=== PATIENT | male | born 1955 | race Caucasian/White ===

== ENCOUNTER 2023-08-12 10:51 | Outpatient (REF) | payer OTHER, SELFPAY ==
[2023-08-12 11:10] LABS: MANUAL DIFF FLAG NO
[2023-08-12 12:27] LABS: Basophils Percent Auto 0.5 % (0-2); Eosinophils Absolute Auto 0.3 X10*3/uL (0.0-0.4); Eosinophils Percent Auto 3.6 % (0-4); Hematocrit 28.1 % (42.0-52.0); Imm Gran Abs Auto 0.07 X10*3/uL (0.00-0.03); Lymphocytes Absolute Auto 1.5 X10*3/uL (1.2-4.9); Lymphocytes Percent Auto 20.4 % (20-40); Mean Corpuscular HGB Conc 35.6 g/dl (31.0-36.0); Mean Corpuscular Volume 98.3 fL (80.0-98.0); Mean Platelet Volume 8.8 fL (9.4-12.4); Monocytes Absolute Auto 0.8 X10*3/uL (0.1-1.2); Monocytes Percent Auto 10.7 % (2-11); Neutrophils Absolute Auto 4.7 x10*3/uL (2.0-8.3); Neutrophils Percent Auto 63.8 % (45-73); Platelet Count 285 X10*3/uL (160-400); RET ABN SCTR 1; Red Blood Count 2.86 X10*6/uL (4.60-5.80); Red Cell Distribution Width 14.6 % (11.0-16.0); White Blood Count 7.3 X10*3/uL (4.8-10.8)
[2023-08-12 12:31] LABS: Bilirubin Total 2.2 mg/dL (0.0-1.0); Lactate Dehydrogenase 302 U/L (118-273)
[2023-08-12 12:34] LABS: Immature Retic Fraction 20.4 % (2.3-13.4); Retic HGB Equivalent 37.5 pg (30.0-35.0)
[2023-08-12 12:35] LABS: Reticulocyte Percent 5.8 % (0.5-1.8); Reticulocytes Absolute 0.167 X10*6/uL (0.026-0.095)
[2023-08-12 22:08] LABS: Haptoglobin <10 MG/DL ((30-200))
== END 2023-08-12 10:52 | disposition home or self-care (01) ==
LOC: HO.LABR 10:51
PROVIDERS: Visit Provider Internal Medicine Medical Oncology
DX: D59.12 Cold autoimmune hemolytic anemia (principal)
CPT/HCPCS: 36415; 82247; 83010; 83615; 85025; 85045

== ENCOUNTER 2023-09-07 12:08 | Outpatient (REF) | payer OTHER, SELFPAY ==
[2023-09-07 12:30] LABS: MANUAL DIFF FLAG NO
[2023-09-07 13:07] LABS: Basophils Percent Auto 0.5 % (0-2); Bilirubin Total 1.9 mg/dL (0.0-1.0); Eosinophils Absolute Auto 0.2 X10*3/uL (0.0-0.4); Eosinophils Percent Auto 2.9 % (0-4); Hematocrit 25.6 % (42.0-52.0); Imm Gran Abs Auto 0.04 X10*3/uL (0.00-0.03); Imm Gran Pct Auto 0.7 % (0.0-0.4); Immature Retic Fraction 21.5 % (2.3-13.4); Lactate Dehydrogenase 342 U/L (118-273); Lymphocytes Absolute Auto 1.8 X10*3/uL (1.2-4.9); Lymphocytes Percent Auto 29.5 % (20-40); Mean Corpuscular HGB Conc 35.2 g/dl (31.0-36.0); Mean Corpuscular Hemoglobin 35.4 pg (27.0-33.0); Mean Corpuscular Volume 100.8 fL (80.0-98.0); Mean Platelet Volume 8.9 fL (9.4-12.4); Monocytes Absolute Auto 0.6 X10*3/uL (0.1-1.2); Monocytes Percent Auto 10.1 % (2-11); Neutrophils Absolute Auto 3.3 x10*3/uL (2.0-8.3); Neutrophils Percent Auto 56.3 % (45-73); Platelet Count 297 X10*3/uL (160-400); Red Blood Count 2.54 X10*6/uL (4.60-5.80); Red Cell Distribution Width 14.8 % (11.0-16.0); Retic HGB Equivalent 38.5 pg (30.0-35.0); Reticulocyte Percent 6.7 % (0.5-1.8); White Blood Count 5.9 X10*3/uL (4.8-10.8)
[2023-09-08 04:31] LABS: Haptoglobin <10 MG/DL ((30-200))
== END 2023-09-07 12:09 | disposition home or self-care (01) ==
LOC: HO.LABR 12:08
PROVIDERS: Visit Provider Internal Medicine Medical Oncology
DX: D59.12 Cold autoimmune hemolytic anemia (principal)
CPT/HCPCS: 36415; 82247; 83010; 83615; 85025; 85045

== ENCOUNTER 2023-09-28 10:09 | Outpatient (REF) | payer OTHER, SELFPAY ==
[2023-09-28 10:27] LABS: MANUAL DIFF FLAG NO
[2023-09-28 11:09] LABS: Basophils Percent Auto 0.2 % (0-2); Eosinophils Absolute Auto 0.1 X10*3/uL (0.0-0.4); Eosinophils Percent Auto 1.4 % (0-4); Imm Gran Abs Auto 0.26 X10*3/uL (0.00-0.03); Imm Gran Pct Auto 4.2 % (0.0-0.4); Immature Retic Fraction 43.8 % (2.3-13.4); Lymphocytes Absolute Auto 1.6 X10*3/uL (1.2-4.9); Lymphocytes Percent Auto 25.8 % (20-40); Mean Corpuscular HGB Conc 35.1 g/dl (31.0-36.0); Mean Corpuscular Hemoglobin 35.8 pg (27.0-33.0); Mean Corpuscular Volume 102.1 fL (80.0-98.0); Mean Platelet Volume 9.2 fL (9.4-12.4); Monocytes Absolute Auto 0.8 X10*3/uL (0.1-1.2); Neutrophils Absolute Auto 3.5 x10*3/uL (2.0-8.3); Neutrophils Percent Auto 56.4 % (45-73); Platelet Count 319 X10*3/uL (160-400); Red Blood Count 1.87 X10*6/uL (4.60-5.80); Red Cell Distribution Width 14.3 % (11.0-16.0); Retic HGB Equivalent 35.3 pg (30.0-35.0); Reticulocyte Percent 5.4 % (0.5-1.8); White Blood Count 6.2 X10*3/uL (4.8-10.8)
[2023-09-28 11:16] LABS: Bilirubin Total 2.4 mg/dL (0.0-1.0); Lactate Dehydrogenase 564 U/L (118-273)
[2023-09-28 11:21] LABS: Hemoglobin 6.7 g/dl (14.0-18.0)
[2023-09-28 11:22] LABS: Hematocrit 19.1 % (42.0-52.0)
[2023-09-28 22:16] LABS: Haptoglobin <10 MG/DL ((30-200))
== END 2023-09-28 10:10 | disposition home or self-care (01) ==
LOC: HO.LABR 10:09
PROVIDERS: Visit Provider Internal Medicine Medical Oncology
DX: D59.12 Cold autoimmune hemolytic anemia (principal)
CPT/HCPCS: 36415; 82247; 83010; 83615; 85025; 85045

== ENCOUNTER 2023-09-28 13:45 | Emergency (ER) | payer OTHER, SELFPAY ==
[2023-09-28] VITALS (15 sets, daily range): BP systolic 117–139; BP diastolic 48–70; PULSE 64–83; RESP 10–18; TEMP 36.5–37.1; O2SAT 97–100; BMI 25.6
--- NOTE | 2023-09-28 13:52 | ED_ITS ---
HPI - General Adult General Chief complaint: Recheck/Abnormal Lab/Rx Stated complaint: Referred by PCP - blood transfusion Time Seen by Provider: 09/28/23 14:16 Source: patient Mode of arrival: ambulatory Limitations: no limitations History of Present Illness HPI narrative: Patient comes to the emergency room complaining of low hemoglobin/hematocrit level. Patient states that he does have history of anemia and he has needed blood transfusions in the past. Patient is a resident in [place]. However, he is working in [place] at this time. 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 Patient takes Xarelto daily. Patient states that he has been feeling a bit weak for over a week. Patient states that approximately a week ago he tested positive for influenza, started feeling weak but then over the last days he has actually been feeling better but not back to baseline. Patient denies chest pain , mild shortness of breath only with exertion such as going up the stairs. Patient denies lightheadedness or syncopal episodes. Patient denies seeing any blood/ black stool Related Data Allergies Allergy/AdvReac Type Severity Reaction Status Date / Time No Known Allergies Allergy Verified 09/28/23 13:52 Review of Systems 2 Review of Systems: Constitutional : No Weight loss, No Fever, No Chills, No Night Sweats, complaining of fatigue Fatigue, No Malaise ENT/Mouth : No Hearing loss, No Ear Pain, No Nasal Congestion, No Sinus Pain, No Hoarseness, No sore throat, No Rhinorrhea, No Swallowing Difficulty Eyes: No Eye Pain, No Swelling, No Redness, No Foreign Body, No Discharge, No Vision Changes Cardiovascular : No Chest Pain, No SOB, No Dyspnea on Exertion, No Orthopnea, No Edema, No Palpitations Respiratory : No Cough, No Sputum, No Wheezing, No Smoke Exposure, No Dyspnea Gastrointestinal : No Nausea, No Vomiting, No Diarrhea, No Constipation, No abdominal Pain, No Hematochezia, No Melena Genitourinary : no irregular bleeding, No Dysuria, No Urinary Frequency, No Hematuria, No Urinary Incontinence, No Urgency, No Flank Pain, No Urinary Flow Changes, No Hesitancy Musculoskeletal : No joint pain, No Myalgias, No Joint Swelling Skin : No Skin Lesions, No rash Neuro : No Weakness, No Numbness, No Paresthesias, No Loss of Consciousness, No Dizziness, No Headache Psych : No Anxiety/Panic, No Depression, No SI/HI/AH/VH, No Social Issues, Heme/Lymph: Complaining of low hemoglobin Endocrine : No Polyuria, No Polydipsia, No Temperature Intolerance PENDING SALE TO [facility] Past Medical History Medical History Marginal zone lymphoma Cold agglutinin disease Social History Social History Smoked in Last 30 Days: No Use of substances other than those prescribed or required for medical reasons: No Advance Directives: No Advance Directives Information Provided: Yes Physical Exam ED Vital Signs: Vital Signs - 24 hr 09/28/23 13:53 09/28/23 14:25 09/28/23 15:43 Temperature 97.7 F 98.1 F 98.2 F Pulse Rate 80 83 68 Respiratory Rate 18 18 14 Blood Pressure 135/52 L 139/48 L 118/52 L Pulse Oximetry 100 98 Oxygen Delivery Method Room Air Room Air 09/28/23 16:00 09/28/23 16:01 09/28/23 16:35 Temperature 97.7 F 98.0 F Pulse Rate 65 74 70 Respiratory Rate 16 14 16 Blood Pressure 117/55 L 133/62 123/55 L Pulse Oximetry 99 98 Oxygen Delivery Method Room Air Room Air 09/28/23 17:05 09/28/23 17:35 09/28/23 18:04 Temperature Pulse Rate 64 69 71 Respiratory Rate 16 16 14 Blood Pressure 118/58 L 120/61 121/62 Pulse Oximetry 97 98 98 Oxygen Delivery Method Room Air Room Air Room Air 09/28/23 18:33 09/28/23 18:53 09/28/23 20:40 Temperature 98.7 F 98.3 F 98.3 F Pulse Rate 75 73 74 Respiratory Rate 14 18 15 Blood Pressure 130/70 125/53 L 128/62 Pulse Oximetry 98 Oxygen Delivery Method Room Air 09/28/23 21:25 09/28/23 21:32 09/28/23 23:51 Temperature 98.2 F 98.2 F 98.2 F Pulse Rate 75 75 69 Respiratory Rate 10 L 10 L 18 Blood Pressure 125/64 125/64 132/64 Pulse Oximetry 98 Oxygen Delivery Method Room Air 09/29/23 00:08 09/29/23 00:44 Temperature 98.1 F Pulse Rate 65 62 Respiratory Rate 21 H 20 Blood Pressure 123/66 123/61 Pulse Oximetry 96 Oxygen Delivery Method Room Air BMI result Body Mass Index 25.6 Const Other: Appearance: Alert. Oriented X3. No acute distress. Eyes: Pupils equal, round and reactive to light. ENT: Pharynx normal. Neck: Normal inspection. Neck supple. No lymph nodes noted. No crepitus CVS: Normal heart rate and rhythm. Pulses normal. Normal S1 and S2 Respiratory: No respiratory distress. Breath sounds normal. No Wheezing. No rales Abdomen: Soft and nontender. No rigidity. No distention. Skin: Skin warm and dry. Diffuse pale skin color. Normal skin turgor. Extremities: No lower extremity edema. No Lacerations. No Rash Neuro: Oriented X 3. No motor deficit. No sensory deficit. Moving all extremities. No slurred speech. CN 2 through 12 grossly intact Psych: calm, cooperative, normal affect Course Course Course Narrative: RME: 68yo M w/PMHx Cold Agglutinin Disease & Non-Hodgkins Lymphoma followed by Dr. Dan (Hem/Onc from [place]) sent in for anemia 6.7/19.1 on outpatient labs today. patient denies active bleeding. Has needed transfusions in the past. States commonly becomes anemic with illness and have the flu last week. Patient is from [place] however in the area for work Patient appears pale Labs, 2 units RBCs ordered Full HPI, ROS and PE to be performed by primary ED provider. Medications Administered Discontinued Medications Generic Name Dose Route Start Last Admin Trade Name Freq PRN Reason Stop Dose Admin Sodium Chloride 100 mls @ 100 mls/hr 09/28/23 13:53 09/28/23 16:46 Ns IV 09/28/23 14:52 Infused ONCE ONE Infusion Sodium Chloride 100 mls @ 100 mls/hr 09/28/23 13:53 09/28/23 19:38 Ns IV 09/28/23 14:52 Infused ONCE ONE Infusion Sodium Chloride 100 mls @ 100 mls/hr 09/28/23 23:06 09/29/23 01:29 Ns IV 09/29/23 00:05 Infused ONCE ONE Infusion Medical Decision Making Medical Decision Making MDM Narrative: My interpretation of labs: Hemoglobin is 6.7, repeat H&H stable, 6.7 then 6.5, hematocrit same, 19.1 then 18.6 with a 4 hour difference. -I discussed with the patient the risks versus benefits of a blood transfusion. Patient states that he is aware, has had transfusions in the past. Agreeable to the blood transfusion, consent signed. -at this time, patient's vitals stable, patient is asymptomatic -patient tested positive for COVID . Patient has been symptomatic for approximately 1 week now, patient is outside of the window of treatment for antivirals -patient completed his 2 units of blood. Patient physically looks better, regain some collar, no longer pale. Patient states that he feels well. In about an hour, we will repeat H&H. Given patient's past medical history, sometimes patient does not respond as expected blood transfusions and he needs more blood. -sign-out given to 23:08 I assumed care of this patient from my colleague, Dr. Demetria Macedo at 22:00 hours. 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 Patient was transfused 2 units of packed red blood cells. Patient initially H&H was 6.5 and 18.6. After 2 units PRBCs his H&H increased to 7.4 and 19.5. Patient states that his security delivery specialist tries to keep his hemoglobin between 9 and 10 therefore I will transfuse 3rd unit of packed red blood cells and repeat his H&H. Patient states that he did receive 1 dose of rituximab approximately 6 weeks ago, he has a security delivery specialist in [place] that is managing his care. I did offer admission for evaluation by our security delivery specialist however the patient would like to receive his 3rd unit of PRBCs can be discharged home and he will contact his security delivery specialist in the morning. 02:42 Patient completed his 3rd unit of PRBCs without incident. H&H will be repeated in the patient will be discharged home. Differential Diagnosis Differential Diagnoses: The differential diagnosis associated with the presentation includes (Upper GI bleed, lower GI bleed, chronic anemia, iron deficiency anemia) Admission/Observation Consideration of admission/observation: Escalation of care including admission/observation considered (Given patient's history and labs, admission was considered) Lab Data MDM Lab Attestation statement: I reviewed the patient's lab results. 09/28/23 22:12 09/28/23 14:11 Labs: Lab Results 09/28/23 09/28/23 09/28/23 Range/Units 14:11 14:36 17:29 WBC 5.4 (4.8-10.8) X10*3/uL RBC 1.86 L (4.60-5.80) X10*6/uL Hgb 6.5 L* (14.0-18.0) g/dl Hct 18.6 L* (42.0-52.0) % MCV 100.0 H (80.0-98.0) fL MCH 34.9 H (27.0-33.0) pg MCHC 34.9 (31.0-36.0) g/dl RDW 14.2 (11.0-16.0) % Plt Count 308 (160-400) X10*3/uL MPV 8.7 L (9.4-12.4) fL Immature Gran % (Auto) 2.6 H (0.0-0.4) % Neut % (Auto) 56.1 (45-73) % Lymph % (Auto) 29.7 (20-40) % Hand % (Auto) 9.9 (2-11) % Eos % (Auto) 1.3 (0-4) % Baso % (Auto) 0.4 (0-2) % Lymph # (Auto) 1.6 (1.2-4.9) X10*3/uL Hand # (Auto) 0.5 (0.1-1.2) X10*3/uL Eos # (Auto) 0.1 (0.0-0.4) X10*3/uL Baso # (Auto) 0.0 (0.0-0.2) X10*3/uL Abs Immat Gran (auto) 0.14 H (0.00-0.03) X10*3/uL Absolute Neuts (auto) 3.0 (2.0-8.3) x10*3/uL Absolute Nucleated RBC 0.000 (0.0-0.012) X10*3/uL Nucleated RBC % (auto) 0.0 (0.0-0.2) /100WBC Sodium 139 (135-145) mmol/L Potassium 3.9 (3.3-5.1) mmol/L Chloride 105 (96-108) mmol/L Carbon Dioxide 27 (22-29) mmol/L Anion Gap 11 L (12-20) BUN 16 (9-16) mg/dL Creatinine 0.85 (0.5-1.4) mg/dL Estim Creat Clear Calc 92.6 Estimated GFR > 60 Random Glucose 90 (60-115) mg/dL Calcium 9.3 (8.4-10.2) mg/dL Magnesium 2.0 (1.6-2.6) mg/dL Total Bilirubin 2.3 H (0.0-1.0) mg/dL Direct Bilirubin 0.7 H (0.0-0.5) mg/dL AST 48 H (5-37) U/L ALT 18 (0-40) U/L Alkaline Phosphatase 63 (39-117) U/L Total Protein 6.3 L (6.5-8.0) g/dL Albumin 4.0 (3.5-5.0) g/dL Stool Occult Blood NEGATIVE (NEGATIVE) COVID-19 ([facility]) Positive A (Negative) COVID-19 Clin Com See Note Influenza Type A ([facility]) Negative (Negative) Influenza Type B (EVY) Negative (Negative) Influenza A & B Note See Note Blood Type A Positive Antibody Screen NEGATIVE Antigen Identification A1 Antigen - NEGATIVE Crossmatch See Detail 09/28/23 Range/Units 22:12 WBC (4.8-10.8) X10*3/uL RBC (4.60-5.80) X10*6/uL Hgb 7.4 L (14.0-18.0) g/dl Hct 19.5 L* (42.0-52.0) % MCV (80.0-98.0) fL MCH (27.0-33.0) pg MCHC (31.0-36.0) g/dl RDW (11.0-16.0) % Plt Count (160-400) X10*3/uL MPV (9.4-12.4) fL Immature Gran % (Auto) (0.0-0.4) % Neut % (Auto) (45-73) % Lymph % (Auto) (20-40) % Hand % (Auto) (2-11) % Eos % (Auto) (0-4) % Baso % (Auto) (0-2) % Lymph # (Auto) (1.2-4.9) X10*3/uL Hand # (Auto) (0.1-1.2) X10*3/uL Eos # (Auto) (0.0-0.4) X10*3/uL Baso # (Auto) (0.0-0.2) X10*3/uL Abs Immat Gran (auto) (0.00-0.03) X10*3/uL Absolute Neuts (auto) (2.0-8.3) x10*3/uL Absolute Nucleated RBC (0.0-0.012) X10*3/uL Nucleated RBC % (auto) (0.0-0.2) /100WBC Sodium (135-145) mmol/L Potassium (3.3-5.1) mmol/L Chloride (96-108) mmol/L Carbon Dioxide (22-29) mmol/L Anion Gap (12-20) BUN (9-16) mg/dL Creatinine (0.5-1.4) mg/dL Estim Creat Clear Calc Estimated GFR Random Glucose (60-115) mg/dL Calcium (8.4-10.2) mg/dL Magnesium (1.6-2.6) mg/dL Total Bilirubin (0.0-1.0) mg/dL Direct Bilirubin (0.0-0.5) mg/dL AST (5-37) U/L ALT (0-40) U/L Alkaline Phosphatase (39-117) U/L Total Protein (6.5-8.0) g/dL Albumin (3.5-5.0) g/dL Stool Occult Blood (NEGATIVE) COVID-19 ([facility]) (Negative) COVID-19 Clin Com Influenza Type A ([facility]) (Negative) Influenza Type B ([facility]) (Negative) Influenza A & B Note Blood Type Antibody Screen Antigen Identification Crossmatch Critical Care Time Critical Care Time Critical Care Time: Yes Total Critical Care Time: 75 Attestation: I have personally provided critical care time. Time includes review of lab data, radiology results, discussion with consultants, and monitoring for potential decompensation. Intervention performed as documented. Discharge Plan Discharge Clinical Impression: COVID-19, Anemia Patient Disposition: Home, Self-Care Instructions: COVID-19 (Coronavirus Disease 2019) (ED) Additional Instructions: You received 3 units of packed red blood cells. Your hemoglobin was 6.5 initially and after 2 units increased to 7.4. The hematocrit is expected to increased by 1 point for each unit of packed red cells transfused. I did repeat a hemoglobin after your 3rd unit. You can check this repeat hemoglobin through the patient portal and discuss these findings with your security delivery specialist in [place]. If your security delivery specialist thinks you need to be hospitalized please return for re- evaluate. We do have security delivery specialist on-call that can help us with your blood disorder. Your COVID positive. Follow the COVID discharge instructions. Continue taking medications as prescribed Follow-up with your doctor in 2 days. Please return to the emergency department if your symptoms get worse or if you develop any symptoms that are concerning to you.
--- NOTE | 2023-09-28 13:53 | ECG_ITS ---
Test Reason : ANEMIA Blood Pressure : / mmHG Vent. Rate : 078 BPM Atrial Rate : 000 BPM P-R Int : 000 ms QRS Dur : 080 ms QT Int : 354 ms P-R-T Axes : 000 058 057 degrees QTc Int : 403 ms Normal sinus rhythm Nonspecific ST abnormality Abnormal ECG No previous ECGs available Referred By: Dena Berry Electronically Signed By:Kali Ramirez
[2023-09-28 14:15] LABS: MANUAL DIFF FLAG NO
[2023-09-28 14:17] LABS: Basophils Percent Auto 0.4 % (0-2); Eosinophils Absolute Auto 0.1 X10*3/uL (0.0-0.4); Eosinophils Percent Auto 1.3 % (0-4); Imm Gran Abs Auto 0.14 X10*3/uL (0.00-0.03); Imm Gran Pct Auto 2.6 % (0.0-0.4); Lymphocytes Absolute Auto 1.6 X10*3/uL (1.2-4.9); Lymphocytes Percent Auto 29.7 % (20-40); Mean Corpuscular HGB Conc 34.9 g/dl (31.0-36.0); Mean Corpuscular Hemoglobin 34.9 pg (27.0-33.0); Mean Platelet Volume 8.7 fL (9.4-12.4); Monocytes Absolute Auto 0.5 X10*3/uL (0.1-1.2); Monocytes Percent Auto 9.9 % (2-11); Neutrophils Percent Auto 56.1 % (45-73); Platelet Count 308 X10*3/uL (160-400); Red Blood Count 1.86 X10*6/uL (4.60-5.80); Red Cell Distribution Width 14.2 % (11.0-16.0); White Blood Count 5.4 X10*3/uL (4.8-10.8)
[2023-09-28 14:20] LABS: Hematocrit 18.6 % (42.0-52.0); Hemoglobin 6.5 g/dl (14.0-18.0)
--- NOTE | 2023-09-28 14:25 | PC.NURSE ---
a&ox3, vss and up to date, nsr on the ad terminal makeup operator. pt comes in today for blood transfusion d/t low H&H results. pt verbalizes new onset weakness/feeling SOB past few days so he went to have his labs checked d/t not feeling right. bilateral 18gIVs placed in the forearms. ED provider bedside assessing pt - pt aware of plan of care at this time. pt awaiting for RBCs to be ready for pickup at this time.
[2023-09-28 14:31] LABS: Alanine Aminotransferase 18 U/L (0-40); Alkaline Phosphatase 63 U/L (39-117); Anion Gap 11 (12-20); Aspartate Amino Transferase 48 U/L (5-37); Bilirubin Direct 0.7 mg/dL (0.0-0.5); Bilirubin Total 2.3 mg/dL (0.0-1.0); Blood Urea Nitrogen 16 mg/dL (9-16); Calcium 9.3 mg/dL (8.4-10.2); Carbon Dioxide 27 mmol/L (22-29); Chloride 105 mmol/L (96-108); Creatinine Clr Calc Pharmacy 92.6; Estimated Glomerular Filt Rate > 60; Glucose Random 90 mg/dL (60-115); Potassium 3.9 mmol/L (3.3-5.1); Sodium 139 mmol/L (135-145); Total Protein 6.3 g/dL (6.5-8.0)
[2023-09-28 14:45] LABS: OBS Int Ctl Valid YES; OBS1 NEGATIVE (NEGATIVE)
--- NOTE | 2023-09-28 15:37 | PC.NURSE ---
delegated tech to obtain blood from blood bank at this time.
--- NOTE | 2023-09-28 16:06 | PC.NURSE ---
blood transfusion initiated at 1546. pt tolerated first 15 minutes of administration well w/o any difficulties. 1601 vitals documented in [facility]. pt denies any new onset sx at this time. pt educated on sx that may need attention. pt provided w/ call oswald and educated to ring if needed. no sob/wob noted. respirations even and unlabored.
[2023-09-28 17:49] LABS: COVID-19 Test Positive (Negative); IDNOW Serial# BCCEAD1C
--- NOTE | 2023-09-28 17:50 | PC.NURSE ---
pt continues to be in no apparent distress. pt has no complaints while receiving blood transfusion. vss and up to date. nsr on the almond blancher hand. regular diet placed to kitchen. will begin 2nd unit when able. respirations remain even and unlabored. call oswald placed within reach.
[2023-09-28 18:05] LABS: IDNOW Serial# 58CA691E; Influenza A Negative (Negative); Influenza B2 Negative (Negative)
--- NOTE | 2023-09-28 18:54 | PC.NURSE ---
1st unit of RBCs completed infused. 2nd unit of RBCs obtained from blood bank by [facility]. 2nd unit of RBCs started at 1838. pt tolerated first 15 min of transfusion well w/o any complications. pt has no complaints. 15 min vss and up to date. nsr on the level vial inside grinder. pt resting comfortably in no apparent distress. respirations remain even/unlabored. call oswald placed within reach.
[2023-09-28 22:18] LABS: Hemoglobin 7.4 g/dl (14.0-18.0)
--- NOTE | 2023-09-28 22:20 | PC.NURSE ---
transfusion complete, VSS. MD aware. pt resting comfortably, aware of plan of care, no complaints or needs at this time
[2023-09-28 22:27] LABS: Hematocrit 19.5 % (42.0-52.0)
--- NOTE | 2023-09-28 23:54 | PC.NURSE ---
3rd unit blood transfusion delayed a few minutes past the allotted 15mins. difficulty disconnecting previous transfusion from the blood warmer and reconnecting the new blood tubing. issue resolved. pt tolerating start of transfusion well. this RN at bedside
[2023-09-29 00:08] VITALS: BP 123/66; PULSE 65; RESP 21; TEMP 36.7
--- NOTE | 2023-09-29 00:10 | PC.NURSE ---
pt tolerated first 15mins of transfusion with no complaints at this time. VSS. call oswald within reach, pt education given on infusion reaction. pt resting comfortably
[2023-09-29 00:44] VITALS: BP 123/61; PULSE 62; RESP 20; O2SAT 96
--- NOTE | 2023-09-29 01:30 | PC.NURSE ---
pt resting comfortably, infusion on going
[2023-09-29 02:57] VITALS: BP 136/70; PULSE 65; RESP 20; TEMP 36.7
[2023-09-29 03:10] LABS: Hemoglobin 9.3 g/dl (14.0-18.0)
== END 2023-09-29 03:14 | disposition home or self-care (01) ==
PROVIDERS: Emergency Medicine; Physician Assistant; Emergency Provider Emergency Medicine Emergency Medical Services
DX: U07.1 COVID-19 (principal); R53.1 Weakness; R06.02 Shortness of breath; D59.12 Cold autoimmune hemolytic anemia; C88.4 Extranodal marginal zone B-cell lymphoma of mucosa-associated lymphoid tissue [MALT-lymphoma]
CPT/HCPCS: 36415; 36430; 80048; 80076; 82272; 83735; 85014; 85018; 85025; 86850; 86900; 86901; 86905; 86923; 87502; 87635; 93005; 96360; 96361; 99285; P9016

== ENCOUNTER → 2023-09-28 13:53 | Outpatient (BNV) | payer OTHER, SELFPAY | PROVIDERS: Emergency Provider Emergency Medicine; Visit Provider Internal Medicine Cardiovascular Disease | DX: R94.31 Abnormal electrocardiogram [ECG] [EKG] (principal) | CPT/HCPCS: 93010 ==

== ENCOUNTER 2023-10-27 11:31 | Outpatient (REF) | payer OTHER, SELFPAY ==
[2023-10-27 12:00] LABS: MANUAL DIFF FLAG NO
[2023-10-27 13:04] LABS: Lactate Dehydrogenase 310 U/L (118-273)
[2023-10-27 13:07] LABS: Basophils Percent Auto 0.5 % (0-2); Eosinophils Absolute Auto 0.2 X10*3/uL (0.0-0.4); Eosinophils Percent Auto 3.1 % (0-4); Hematocrit 28.8 % (42.0-52.0); Hemoglobin 9.8 g/dl (14.0-18.0); Imm Gran Abs Auto 0.04 X10*3/uL (0.00-0.03); Imm Gran Pct Auto 0.6 % (0.0-0.4); Lymphocytes Absolute Auto 1.7 X10*3/uL (1.2-4.9); Lymphocytes Percent Auto 26.8 % (20-40); Mean Corpuscular Volume 99.3 fL (80.0-98.0); Mean Platelet Volume 9.1 fL (9.4-12.4); Monocytes Absolute Auto 0.7 X10*3/uL (0.1-1.2); Monocytes Percent Auto 10.1 % (2-11); Neutrophils Absolute Auto 3.8 x10*3/uL (2.0-8.3); Neutrophils Percent Auto 58.9 % (45-73); Platelet Count 240 X10*3/uL (160-400); Red Cell Distribution Width 14.6 % (11.0-16.0); Retic HGB Equivalent 38.6 pg (30.0-35.0); Reticulocyte Percent 5.3 % (0.5-1.8); Reticulocytes Absolute 0.153 X10*6/uL (0.026-0.095); White Blood Count 6.5 X10*3/uL (4.8-10.8)
[2023-10-27 13:10] LABS: Mean Corpuscular Hemoglobin 33.8 pg (27.0-33.0)
[2023-10-27 22:34] LABS: Haptoglobin <10 MG/DL ((30-200))
== END 2023-10-27 11:32 | disposition home or self-care (01) ==
LOC: HO.LABR 11:31
PROVIDERS: Visit Provider Internal Medicine Medical Oncology
DX: D59.12 Cold autoimmune hemolytic anemia (principal)
CPT/HCPCS: 83010; 83615; 85025; 85045; 86157; 86880

== ENCOUNTER 2023-11-03 11:44 | Outpatient (REF) | payer OTHER, SELFPAY ==
[2023-11-03 12:19] LABS: MANUAL DIFF FLAG NO
[2023-11-03 13:19] LABS: Basophils Percent Auto 0.5 % (0-2); Eosinophils Absolute Auto 0.2 X10*3/uL (0.0-0.4); Eosinophils Percent Auto 3.2 % (0-4); Hematocrit 30.5 % (42.0-52.0); Hemoglobin 10.5 g/dl (14.0-18.0); Imm Gran Abs Auto 0.04 X10*3/uL (0.00-0.03); Imm Gran Pct Auto 0.6 % (0.0-0.4); Immature Retic Fraction 17.7 % (2.3-13.4); Lymphocytes Absolute Auto 1.5 X10*3/uL (1.2-4.9); Lymphocytes Percent Auto 23.1 % (20-40); Mean Corpuscular HGB Conc 34.4 g/dl (31.0-36.0); Mean Corpuscular Volume 98.7 fL (80.0-98.0); Mean Platelet Volume 8.8 fL (9.4-12.4); Monocytes Absolute Auto 0.7 X10*3/uL (0.1-1.2); Monocytes Percent Auto 10.8 % (2-11); Neutrophils Absolute Auto 3.9 x10*3/uL (2.0-8.3); Neutrophils Percent Auto 61.8 % (45-73); Platelet Count 304 X10*3/uL (160-400); Red Blood Count 3.09 X10*6/uL (4.60-5.80); Red Cell Distribution Width 14.8 % (11.0-16.0); Retic HGB Equivalent 38.4 pg (30.0-35.0); Reticulocytes Absolute 0.198 X10*6/uL (0.026-0.095); White Blood Count 6.3 X10*3/uL (4.8-10.8)
[2023-11-03 13:20] LABS: RET ABN SCTR 1
[2023-11-03 13:23] LABS: Reticulocyte Percent 6.4 % (0.5-1.8)
[2023-11-03 13:46] LABS: Lactate Dehydrogenase 264 U/L (118-273)
[2023-11-03 21:15] LABS: Haptoglobin <10 MG/DL ((30-200))
== END 2023-11-03 11:45 | disposition home or self-care (01) ==
LOC: HO.LABR 11:44
PROVIDERS: Visit Provider Internal Medicine Medical Oncology
DX: D59.12 Cold autoimmune hemolytic anemia (principal)
CPT/HCPCS: 83010; 83615; 85025; 85045; 86157; 86880

== ENCOUNTER 2023-11-30 15:02 | Outpatient (REF) | payer OTHER, SELFPAY ==
[2023-11-30 16:27] LABS: Immature Retic Fraction 20.4 % (2.3-13.4); Retic HGB Equivalent 38.3 pg (30.0-35.0); Reticulocyte Percent 7.4 % (0.5-1.8); Reticulocytes Absolute 0.158 X10*6/uL (0.026-0.095)
[2023-12-02 08:37] LABS: Haptoglobin <10 MG/DL ((30-200))
== END 2023-11-30 15:03 | disposition home or self-care (01) ==
LOC: HO.LABR 15:02
PROVIDERS: Visit Provider Internal Medicine Medical Oncology
DX: D59.12 Cold autoimmune hemolytic anemia (principal)
CPT/HCPCS: 83010; 85045; 86157